=== PATIENT | male | born 1950 ===

== ENCOUNTER 2016-10-14 13:02 | Emergency (ER) | payer MEDICARE, BC ==
[2016-10-14 13:03] VITALS: BMI 30.7
[2016-10-14 13:08] VITALS: BP 136/92; PULSE 87; RESP 20; TEMP 98; O2SAT 99
--- NOTE | 2016-10-14 13:48 | ED PDOC ---
HPI: Back Time Seen by Provider: 10/14/16 13:30 Chief Complaint (Nursing): Back Pain Chief Complaint (Provider): Neck Pain History Per: Patient Onset/Duration Of Symptoms: Hrs (prior to arrival ) Additional Complaint(s): Manuel Goodwin, 66 year old male presents to the ED for neck pain. The patient went to a chiropractor today for manipulation to his neck which caused an acute dave of burning pins and needles to the left side of his neck. The patient reports the pain has improved since 9:00 this morning when this injury occurred, but states he currently feels residual pain. The patient notes feeling pain when opening his mouth, turning his neck, and around his ears. He denies numbness, tingling, or weakness in his arms, any vision or speech changes , headache, shortness of breath, or chest pains. He has applied ice and taken Aspirin for the pain. PMD: Dru Fang MD Past Medical History Reviewed: Historical Data, Nursing Documentation, Vital Signs Vital Signs: Last Vital Signs Temp 98 F 10/14/16 13:05 Pulse 87 10/14/16 13:05 Resp 20 10/14/16 13:05 BP 136/92 H 10/14/16 13:05 Pulse Ox 99 10/14/16 13:05 - Medical History PMH: HTN - Family History Family History: States: Unknown Family Hx - Social History Current smoker - smoking cessation education provided: No Ex-Smoker (has not smoked in the last 12 months): No Alcohol: None Drugs: Denies - Home Medications Home Medications: Ambulatory Orders Medication Instructions Recorded Acetaminophen/Oxycodone Hydr 1 tab PO Q6H PRN #15 tab 12/10/13 [Percocet 325 mg-5 mg] Cyclobenzaprine HCl [Flexeril] 10 mg PO BID PRN #0 tab 12/10/13 Methylprednisolone [Medrol] 4 mg PO TITR #1 unit 12/10/13 Cyclobenzaprine [Cyclobenzaprine 10 mg PO BID #14 tab 10/14/16 HCl] Naproxen 500 mg PO BID #30 tab 10/14/16 - Allergies Allergies/Adverse Reactions: Allergies Allergy/AdvReac Type Severity Reaction Status Date / Time No Known Allergies Allergy Verified 12/10/13 19:32 Review of Systems ROS Statement: Except As Marked, All Systems Reviewed And Found Negative Eyes: Negative for: Vision Change Cardiovascular: Negative for: Chest Pain Respiratory: Negative for: Shortness of Breath Musculoskeletal: Positive for: Neck Pain (pain in neck when opening mouth, turning neck, and around ears ) Neurological: Negative for: Weakness, Numbness (and no tingling), Change in Speech, Headache Physical Exam - Reviewed Nursing Documentation Reviewed: Yes Vital Signs Reviewed: Yes - Physical Exam Appears: Positive for: Well, Non-toxic, No Acute Distress Head Exam: Positive for: ATRAUMATIC, NORMAL INSPECTION, NORMOCEPHALIC Cardiovascular/Chest: Positive for: Regular Rate, Rhythm, Chest Non Tender (no pain to chest on palpation) Neurologic/Psych: Positive for: Alert, greens cutter II-XII (axillary nerves intact to left side of neck; cranial nerves intact), Oriented, Other (cerebellar fine; pulses equal bilaterally ) - ECG O2 Sat by Pulse Oximetry: 99 (RA) Pulse Ox Interpretation: Normal Medical Decision Making Medical Decision Making: Impression: Neck pain Plan: * Nerve injury resolving. Administer Flexeril and Naproxen. Discussed with patient that injury will resolve with medications administered in time. Patient agreed to medications administered and treatment plan. Scribe Attestation: Documented by Anastasia Guevara, acting as a scribe for Em Briggs PA-C. Provider Scribe Attestation: All medical record entries made by the Scribe were at my direction and personally dictated by me. I have reviewed the chart and agree that the record accurately reflects my personal performance of the history, physical exam, medical decision making, and the department course for this patient. I have also personally directed, reviewed, and agree with the discharge instructions and disposition. Disposition - Clinical Impression Clinical Impression: Nerve pain - Patient ED Disposition Is Patient to be Admitted: No - Disposition Referrals: [facility] [Outside] Disposition: Routine/Home Disposition Time: 14:52 Condition: STABLE Prescriptions: Cyclobenzaprine [Cyclobenzaprine HCl] 10 mg PO BID #14 tab Naproxen 500 mg PO BID #30 tab Instructions: Cervical Radiculopathy (ED)
== END 2016-10-14 14:26 | disposition home or self-care (01) ==
LOC: H.ER 13:02
DX: M54.12 Radiculopathy, cervical region (principal); I10 Essential (primary) hypertension; Z87.891 Personal history of nicotine dependence